=== PATIENT | male | born 1940 | race Caucasian/White ===

== ENCOUNTER 2023-02-28 19:03 | Emergency (ER) | payer MEDICARE ==
[~2023-02-28] VITALS: Ht 177.8 cm; Wt 97.5 kg
[2023-02-28] MEDS ORDERED: ACETAMINOPHEN 325 MG TAB PO ONE (20:30)
[2023-02-28] MEDS ORDERED: ACETAMINOPHEN 325 MG TAB ONE (20:33)
[2023-02-28] MEDS ORDERED: CEPHALEXIN500 MG PO (21:32)
[2023-02-28 21:54] VITALS: O2SAT 97
== END 2023-02-28 21:56 | disposition home or self-care (01) ==
LOC: FSED 19:29
DX: L03.113 Cellulitis of right upper limb (principal); S61.411A Laceration without foreign body of right hand, initial encounter; I10 Essential (primary) hypertension; E78.5 Hyperlipidemia, unspecified; E03.9 Hypothyroidism, unspecified; I25.10 Atherosclerotic heart disease of native coronary artery without angina pectoris; K21.9 Gastro-esophageal reflux disease without esophagitis
CPT/HCPCS: 99283